=== PATIENT | female | born 1950 | race Two or more races ===

== ENCOUNTER 2025-01-08 05:14 | Inpatient (IN) | payer MEDICARE, OTHER ==
[2025-01-08] VITALS (9 sets, daily range): BP systolic 110–157; BP diastolic 57–81; TEMP 97.5–98.4; O2SAT 96–100
[~2025-01-08] VITALS: Ht 162.6 cm; Wt 81.6 kg
[~2025-01-08 05:14] MED LIST: ALLO100T PO; ASPI-605 PO; ERGO500014 PO; FOLI1TAB16 PO; TRAM300T2 PO; VALS1TAB4 PO
[2025-01-08] MEDS ORDERED: POLYMYXIN B SULFATE 500,000 UNITS ONE (05:53)
[2025-01-08] MEDS ORDERED: TRANEXAMIC ACID 1,000 MG/10 ML VIAL ONE (05:53)
[2025-01-08] MEDS ORDERED: BUPIVACAINE 0.5 % PF 150 MG/30 ML VIAL ONE ×2 (05:53→06:26)
[2025-01-08] MEDS ORDERED: ACETAMINOPHEN 325 MG TABLET ONE (06:13)
[2025-01-08] MEDS ORDERED: CELECOXIB 100 MG CAPSULE ONE (06:13)
[2025-01-08] MEDS ORDERED: FENTANYL PF 100MCG/2ML AMPUL ONE (06:17)
[2025-01-08] MEDS ORDERED: MIDAZOLAM HCL 2 MG/2ML VIAL ONE (06:17)
[2025-01-08] MEDS ORDERED: ROCURONIUM BROMIDE 50 MG/5 ML ONE (06:18)
[2025-01-08] MEDS ORDERED: FAMOTIDINE/PF INJ 20 MG/2 ML VIAL IV ONE (06:18)
[2025-01-08] MEDS: ACETAMINOPHEN 325 MG TABLET PO PRN (06:22)
[2025-01-08] MEDS: CELECOXIB 100 MG CAPSULE PO SCH (06:23)
[2025-01-08] MEDS ORDERED: ROPIVACAINE HCL 0.5% 5 MG/ML 30ML VIAL ONE (06:25)
[2025-01-08] MEDS ORDERED: SUGAMMADEX SODIUM 200 MG/2 ML VIAL IV ONE (06:25)
[2025-01-08] MEDS ORDERED: dexaMETHasone SOD PHOSPHATE 1 ML ONE (06:26)
[2025-01-08] MEDS ORDERED: CITRIC ACID/SODIUM CITRATE (BICITRA)15 ML UDC ONE (06:26)
[2025-01-08] MEDS ORDERED: TRANEXAMIC ACID 1,000 MG in IV NS 0.9% 100 ML IV ONE (06:30)
[2025-01-08] MEDS ORDERED: HYDROMORPHONE INJ 2 MG/ML DISP.SYRIN ONE (07:13)
[2025-01-08] MEDS ORDERED: HYDROMORPHONE INJ 2 MG/ML DISP.SYRIN IV PRN (08:30)
[2025-01-08] MEDS ORDERED: ONDANSETRON HCL/PF 4 MG/2 ML VIAL IVP PRN ×2 (08:30→10:00)
[2025-01-08] MEDS ORDERED: HYDROCODONE/APAP 5/325MG TABLET PO PRN (10:00)
[2025-01-08] MEDS ORDERED: SENNOSIDES 8.6 MG TABLET PO PRN (10:00)
[2025-01-08] MEDS ORDERED: DOCUSATE SODIUM 250 MG CAPSULE PO PRN (10:00)
[2025-01-08] MEDS ORDERED: BISACODYL SUPP (10 MG) 10 MG/SUPP.RECT SUPP.RECT RC PRN (10:00)
[2025-01-08] MEDS ORDERED: ZOLPIDEM TARTRATE 5 MG TABLET PO PRN (10:00)
[2025-01-08] MEDS ORDERED: CHOL200059 PO (10:20)
[2025-01-08] MEDS ORDERED: OMEG1CAP18 PO (10:20)
[2025-01-08] MEDS ORDERED: PITA4TAB PO (10:20)
[2025-01-08] MEDS ORDERED: OXYC1TAB12 PO (10:20)
[2025-01-08] MEDS ORDERED: ASPIRIN 81 MG TAB.CHEW PO SCH (10:30)
[2025-01-08] MEDS ORDERED: MAG HYDROX/AL HYDROX/SIMETH 30 ML UDC PO PRN (11:30)
[2025-01-08] MEDS ORDERED: MAGNESIUM HYDROXIDE 30 ML UDC PO PRN (11:30)
[2025-01-08] MEDS ORDERED: CLONIDINE HCL 0.1 MG TABLET PO PRN (11:30)
[2025-01-08] MEDS: IV D5/0.45 NACL 1,000 ML IV PRN (12:43)
[2025-01-08] MEDS: ANCEF 1 GM/50 ML D5W IV SCH (14:42)
[2025-01-08] MEDS: ASPIRIN 81 MG TAB.CHEW PO SCH (16:30)
[2025-01-08] MEDS: DOCUSATE SODIUM 100 MG CAPSULE PO SCH (16:33)
[2025-01-08] MEDS: FAMOTIDINE (20 MG) 20 MG TABLET PO SCH (20:26)
[2025-01-08] MEDS: oxyCODONE IR immediate release 5 MG TABLET PO PRN (22:09)
[2025-01-09] MEDS: oxyCODONE IR immediate release 5 MG TABLET PO PRN (01:50)
[2025-01-09 06:29] LABS: PLATELET COUNT (AUTO) 184 K/uL (150-450); RED BLOOD CELL COUNT(AUTO) 3.13 MIL/uL (4.0-5.2); RED CELL DISTRIBUTION WIDTH 13.4 % (11.5-15.0); WHITE BLOOD COUNT (AUTO) 8.1 K/uL (4.3-11.0)
[2025-01-09 07:30] VITALS: BP 96/49; TEMP 97.3; O2SAT 99
[2025-01-09 07:46] LABS: ASPARTATE AMINOTRANSFERASE 21.0 U/L (15-37); CALCIUM, SERUM 8.2 mg/dL (8.5-10.1); CREATININE 0.6 mg/dL (0.6-1.3); PHOSPHORUS 3.0 mg/dL (2.5-4.9); SODIUM SERUM 136.0 mmol/L (136-145); TOTAL PROTEIN, SERUM 6.7 g/dL (6.4-8.2); UREA NITROGEN, BLOOD 14.0 mg/dL (7-18)
[2025-01-09 08:00] VITALS: BP 96/49; TEMP 97.3; O2SAT 99
[2025-01-09] MEDS ORDERED: ASPIRIN 325 MG TABLET PO SCH (09:00)
[2025-01-09] MEDS: HYDROMORPHONE 1 MG/1 ML DISP.SYRIN IM/IV/SC PRN (14:14)
[2025-01-09 15:49] VITALS: BP 112/44; TEMP 98.6; O2SAT 100
[2025-01-09 16:00] VITALS: BP 112/44; TEMP 98.6; O2SAT 100
[2025-01-09 20:00] VITALS: BP_SYST 109; BP_SYST 151; BP_DIAS 42; BP_DIAS 93; TEMP 97.3; TEMP 98.8; O2SAT 96; O2SAT 99
[2025-01-10 07:00] VITALS: BP 107/55; TEMP 99; O2SAT 98
[2025-01-10] MEDS ORDERED: FAMO-131 PO (08:13)
[2025-01-10] MEDS ORDERED: ASPI-1169 PO (08:13)
[2025-01-10 16:00] VITALS: BP 114/55; TEMP 98.1; O2SAT 99
[2025-01-10 16:25] LABS: PLATELET COUNT (AUTO) 175 K/uL (150-450); RED BLOOD CELL COUNT(AUTO) 2.78 MIL/uL (4.0-5.2); RED CELL DISTRIBUTION WIDTH 13.2 % (11.5-15.0); WHITE BLOOD COUNT (AUTO) 9.0 K/uL (4.3-11.0)
[2025-01-10 17:22] LABS: CALCIUM, SERUM 8.0 mg/dL (8.5-10.1); CREATININE 0.8 mg/dL (0.6-1.3); SODIUM SERUM 136.0 mmol/L (136-145); UREA NITROGEN, BLOOD 12.0 mg/dL (7-18)
[2025-01-10] MEDS: POTASSIUM CHLORIDE 20 MEQ TAB.PRT.SR PO ONE (17:45)
[2025-01-10 20:00] VITALS: BP 115/55; TEMP 99; TEMP 99.5; O2SAT 98
[2025-01-10] MEDS: ACETAMINOPHEN 325 MG TABLET PO PRN (20:13)
[2025-01-11 07:41] LABS: PLATELET COUNT (AUTO) 157 K/uL (150-450); RED BLOOD CELL COUNT(AUTO) 2.62 MIL/uL (4.0-5.2); RED CELL DISTRIBUTION WIDTH 13.0 % (11.5-15.0); WHITE BLOOD COUNT (AUTO) 7.5 K/uL (4.3-11.0)
[2025-01-11 07:55] LABS: CALCIUM, SERUM 7.6 mg/dL (8.5-10.1); CREATININE 0.6 mg/dL (0.6-1.3); SODIUM SERUM 137.0 mmol/L (136-145); UREA NITROGEN, BLOOD 8.0 mg/dL (7-18)
[2025-01-11 08:00] VITALS: BP 106/61; TEMP 99.1; O2SAT 97
[2025-01-11] MEDS: POTASSIUM CHLORIDE 20 MEQ TAB.PRT.SR PO SCH (10:01)
== END 2025-01-11 12:06 | disposition home health service (06) | DRG 470 ==
LOC: DS 05:14 → MED 05:15
PROVIDERS: ADMIT Specialist
PROC: 0MNP0ZZ Release Left Knee Bursa and Ligament, Open Approach (ICD-10-PCS; 2025-01-08)
PROC: 0SRD069 Replacement of Left Knee Joint with Oxidized Zirconium on Polyethylene Synthetic Substitute, Cemented, Open Approach (ICD-10-PCS; principal; 2025-01-08 06:30)
DX: M17.12 Unilateral primary osteoarthritis, left knee (principal); I10 Essential (primary) hypertension; E78.5 Hyperlipidemia, unspecified; M25.862 Other specified joint disorders, left knee; E66.9 Obesity, unspecified; Z68.30 Body mass index [BMI] 30.0-30.9, adult; Z87.891 Personal history of nicotine dependence; Z96.651 Presence of right artificial knee joint; I45.10 Unspecified right bundle-branch block
CPT/HCPCS: 36415; 80048-TC; 80053-TC; 83735-TC; 84100-TC; 85025-TC; 87081-TC; 97110-TC; 97116-TC; 97530-TC; 97535-TC; 97760-TC; A4217; A4223; A6253; C1713; C1776; G0378; J0690; J1100; J1171; J1308; J2250; J2405; J2704; J2765; J2795; J3010; J3490; J7030; J7060; L1830